=== PATIENT | female | born 1945 | race Caucasian/White ===

== ENCOUNTER 2017-09-25 07:30 | Inpatient (IN) | payer OTHER ==
[~2017-09-25] VITALS: Ht 160 cm; Wt 68.2 kg
[2018-08-09 14:59] VITALS: Ht 160 cm; Wt 68.2 kg
[2018-08-15] VITALS (21 sets, daily range): BP systolic 108–140; BP diastolic 46–84; PULSE 54–75; RESP 16–20
[2018-08-15] MEDS ORDERED: LACTATED RINGER'S 1,000 ML IV* SCH (06:00)
[2018-08-15] MEDS ORDERED: ACETAMINOPHEN 500 MG TAB PO ONE (06:00)
[2018-08-15] MEDS ORDERED: TRANEXAMIC ACID 1,000 MG in NS 100 ML PRE-OP X1 IVPB ONE (06:00)
[2018-08-15] MEDS ORDERED: CEFAZOLIN 2 GM/50 ML (PMX) 50 ML IVPB ONE (06:00)
[2018-08-15] MEDS ORDERED: TRANEXAMIC ACID 1,000 MG in NS 100 ML INTRA-OP X1 IVPB ONE (06:00)
[2018-08-15] MEDS ORDERED: DEXAMETHASONE 4 MG/ML 1 ML INJ IV ONE (06:00)
[2018-08-15] MEDS ORDERED: GLYCOPYRROLATE 0.4 MG INJ ONE ×2 (07:00→14:59)
[2018-08-15] MEDS ORDERED: SULF500T5 PO (11:33)
[2018-08-15] MEDS ORDERED: LATA2.5D2 BOTH EYES (11:34)
[2018-08-15] MEDS ORDERED: ASPI81TA52 PO (11:34)
--- NOTE | 2018-08-15 11:58 | HPN ---
Date/Time of Note Date/Time of Note DATE: 08/15/18 TIME: 11:58 Interval H&P Admission Note Pt. seen H&P reviewed: No system changes LORA HERNANDEZ Aug 15, 2018 11:58
[2018-08-15] MEDS ORDERED: ACETAMINOPHEN 1000MG/100ML IV 100 ML IVPB SCH (12:00)
[2018-08-15] MEDS ORDERED: POLYMYXIN B 500000 UNIT INJ ONE (12:18)
--- NOTE | 2018-08-15 12:23 | PREAC ---
Date/Time of Note Date/Time of Note DATE: 08/15/18 TIME: 12:21 Anesthesia Eval and Record Evaluation Time Pre-Procedure Interview DATE: 08/15/18 TIME: 12:21 Age 73 Sex female NPO: 8 hrs Preoperative diagnosis left knee osteoarthritis Planned procedure left total knee replacement Past Medical History Past Medical History: Includes Cardio: HTN, Dyslipidemia, Other (aortic valve replacemnt) Musculoskeletal: Osteoarthritis Renal: CKD, Other (hy of dialysis 20 years ago, resolved) GI: Other (hx of colon resection with colostomy) Surgery & Anesthesia Issues No known issue Meds Anticoagulation: No Beta Isaías within 24 hr: No Reason Beta Isaías not given: Pt. not on B-Isaías Reported Medications Latanoprost (Latanoprost) 2.5 Ml Drops, 1 DROP BOTH EYES QHS, #1 BOTTLE 08/15/18 Aspirin (Low Dose Aspirin) 81 Mg Tablet.dr, 81 MG PO DAILY, #30 TAB 08/15/18 Sulfasalazine* (Sulfazine*) 500 Mg Tablet, 1000 MG PO TID, TAB 08/15/18 Current Medications Lactated Ringer's 1,000 ml @ 125 mls/hr Q8H IV* Last administered on 08/15/18at 12:09; Admin Dose 125 MLS/HR; Start 08/15/18 at 06:00; Stop 08/15/18 at 13:59 Meds reviewed: Yes Allergies Coded Allergies: No Known Allergy (Unverified , 08/15/18) Allergies Reviewed: Yes Labs/Studies Labs Reviewed: Reviewed by anesthesiologist test: N/A Studies: ECG, CXR Pre-procedure Exam Airway: Adequate mouth opening, Adequate thyromental dist Mallampati: Mallampati I Teeth: Normal Lung: Normal Heart: Normal ASA Physical Status ASA physical status: 3 Emergency: None Planned Anesthetic General/MAC: ETT Neuraxial: Spinal Planned Pain Management Parenteral pain med Pre-operative Attestations Prior to commencing anesthesia and surgery, the patient was re-evaluated, there was verification of: *The patient's identity *The results of appropriate recent lab work and preoperative vital signs *The above evaluation not changing prior to induction *Anesthetic plan, risk benefits, alternative and complications discussed with patient/family; questions answered; patient/family understands, accepts and wishes to proceed. JAVED WANG Aug 15, 2018 12:23
[2018-08-15] MEDS ORDERED: MIDAZOLAM 1 MG/ML 2 ML INJ ONE (12:56)
[2018-08-15] MEDS ORDERED: PROPOFOL 20 ML ONE (12:57)
[2018-08-15] MEDS ORDERED: EPHEDrine SULFATE 50 MG/5 ML SYG ONE (12:57)
[2018-08-15] MEDS ORDERED: ROCURONIUM 50 MG INJ ONE (12:57)
[2018-08-15] MEDS ORDERED: CEFAZOLIN 1 GM INJ ONE (13:50)
[2018-08-15] MEDS ORDERED: ONDANSETRON 4 MG INJ ONE (13:51)
[2018-08-15] MEDS ORDERED: DEXAMETHASONE 4 MG/ML 5 ML INJ ONE (13:51)
[2018-08-15] MEDS ORDERED: BACITRACIN 50000 UNITS INJ IRR ONE (14:08)
[2018-08-15] MEDS ORDERED: LABETALOL HCL 20MG INJ ONE (14:20)
[2018-08-15] MEDS ORDERED: BACITRACIN 50000 UNITS INJ ONE (14:54)
--- NOTE | 2018-08-15 14:55 | SIPON ---
Date/Time of Note Date/Time of Note DATE: 08/15/18 TIME: 14:54 Operative Report Preoperative Diagnosis Left knee osteoarthritis Postoperative Diagnosis Same Operation/Procedure Performed Left total knee replacement Surgeon see signature line sugar laboratory assistant JOAN Pratt Anesthesia: spinal Estimated blood loss: 150 - 200 ml's Transfusion Required none Specimen Bone Grafts/Implants Attune knee, 5 femur, 4 tibia, 5 polyethylene and 35 patella Complications none LORA HERNANDEZ Aug 15, 2018 14:55
--- NOTE | 2018-08-15 14:58 | OPR ---
Date/Time of Note Date/Time of Note DATE: 08/15/18 TIME: 14:55 Operative Report Procedure Date: Aug 15, 2018 Preoperative Diagnosis Left knee osteoarthritis Postoperative Diagnosis Same Operation/Procedure Performed Left total knee replacement Surgeon see signature line Exterior Door Installer JOAN Pratt Anesthesia Type: spinal Estimated Blood Loss: 150 - 200 ml's Transfusion none Specimen Bone Grafts/Implants Attune knee, 5 femur, 4 tibia, 5 polyethylene, 35 patella Complications none Pt Condition Post Procedure: stable Disposition: PACU Indications Patient is a 73-year-old female with advanced arthritis of her left Procedure Description The patient was placed supine on the operating room table. The left knee was prepped and draped in the usual manner. Effusion and deformity were noted. An anterior incision was made. A mid vastus approach was made in the patella displaced laterally without everting it. Using intramedullary alignment, the distal femoral cut was made in 5 degrees of valgus. The femur was measured to be a size 5 from the [employer] knee system. The 5 cutting block was placed and anterior posterior and chamfer cuts made. A notch was cut in the distal femur to accommodate the posterior stabilized femoral component. The PCL was sacrificed and remnants of the menisci were removed. The tibia was cut using external alignment and the patella cut using a freehand technique. Trials were inserted including a 5 femur, 4 tibia, 5 mm of polyethylene and 35 patella. This resulted in a stable knee from 0-130 degrees with good balance and tracking. X-rays confirm proper alignment of the implants. Once satisfactory alignment was confirmed, the left knee was thoroughly irrigated, trials were removed. Final implants were cemented in place including a 5 narrow femur, 4 tibia, 35 patella. A 5 mm of polyethylene were inserted. The knee was thoroughly irrigated and injected with pain cocktail. The knee was closed in layers using #1 strata fix for deep fascia, 2-0 Vicryl for subcutaneous tissue and 3-0 Monocryl for the skin. Patient was transferred to the recovery room in stable condition LORA HERNANDEZ Aug 15, 2018 14:58
[2018-08-15] MEDS ORDERED: NEOSTIGMINE 3 MG/3 ML SYRINGE ONE (14:59)
[2018-08-15] MEDS ORDERED: BISACODYL 10 MG SUPP PR PRN (15:00)
[2018-08-15] MEDS ORDERED: NALOXONE (0.4 MG/ML) INJ IV PRN (15:00)
[2018-08-15] MEDS ORDERED: NACL 0.9% 3 ML SYG IV SCH (15:00)
[2018-08-15] MEDS ORDERED: MAGNESIUM HYDROXIDE 30ML CUP PO PRN (15:00)
[2018-08-15] MEDS ORDERED: KETOROLAC 15 MG INJ IV PRN (15:00)
[2018-08-15] MEDS ORDERED: oxyCODONE 5 MG TAB PO PRN ×2 (15:00)
--- NOTE | 2018-08-15 15:26 | PAC ---
Date/Time of Note Date/Time of Note DATE: 08/15/18 TIME: 15:25 Post-Anesthesia Notes Post-Anesthesia Note Last documented vital signs Vital Signs Date Temp Pulse Resp B/P (MAP) Pulse Ox O2 O2 Flow FiO2 Time Delivery Rate 08/15/18 99.5 67 136/78 95 15:23 08/15/18 75 16 130/60 100 Room Air 12:25 (83) Activity: WNL Respiratory function: WNL Cardiovascular function: WNL Mental status: Baseline Pain reasonably controlled: Yes Hydration appropriate: Yes Nausea/Vomiting absent: Yes JAVED WANG Aug 15, 2018 15:26
[2018-08-15] MEDS ORDERED: HYDROmorphONE 1 MG/5 ML IV SYRINGE IV PRN ×3 (15:30)
[2018-08-15] MEDS ORDERED: DIPHENHYDRAMINE 50 MG INJ IV PRN (15:30)
[2018-08-15] MEDS ORDERED: ONDANSETRON 4 MG INJ IV PRN (15:30)
[2018-08-15] MEDS ORDERED: hydrALAzine 20 MG INJ IV PRN (15:30)
[2018-08-15] MEDS ORDERED: KETOROLAC 30 MG INJ IV PRN (15:30)
[2018-08-15] MEDS ORDERED: EPHEDrine SULFATE 50 MG/5 ML SYG IV PRN (15:30)
[2018-08-15] MEDS ORDERED: METOCLOPRAMIDE 10 MG INJ IV PRN (15:30)
[2018-08-15] MEDS ORDERED: MIDAZOLAM 1 MG/ML 2 ML INJ IV PRN (15:30)
[2018-08-15] MEDS ORDERED: MEPERIDINE 25 MG INJ IV PRN (15:30)
[2018-08-15] MEDS ORDERED: ALBUTEROL 0.083% (NEB) 2.5 MG/3 ML AMP HHN PRN (15:30)
[2018-08-15] MEDS ORDERED: LABETALOL HCL 20MG INJ IV PRN (15:30)
[2018-08-15] MEDS ORDERED: OXYCODONE/ACETAMINOPHEN (5/325) TAB PO PRN ×2 (15:30)
[2018-08-15] MEDS ORDERED: FENTAnyl 50 MCG/ML VIAL IV PRN ×3 (15:30)
[2018-08-15] MEDS ORDERED: HYDROmorphONE 1 MG/5 ML IV SYRINGE IV ONE (15:39)
--- NOTE | 2018-08-15 16:30 | NUR ---
PT EVXENIA Therapy day number 1 Evaluation Start Time 15:30 Evaluation Total Time 0 min Subjective Current complaint of pain Pain Scale NUMERIC Pain Intensity 7 (0-10) Patient Stated Goal for Pain Relief 0 (0-10) Pain Level Comment L knee pain Pre Treatment Vital Signs Stable Yes - per PACU monitors Exercise Assessment Label Left Lower Extremity Exercise Type Active ROM Additional Exercise Comments per TKA protocol Supine to Sit Moderate Assist Transfer Sit to Stand Ability Contact Guard Assist Bed Mobility Sit to Supine Contact Guard Assist Bed Transfer Ability Minimum Assist Chair Transfer Ability Minimum Assist Sitting Tolerance 15 min Patient uses wheelchair Not Applicable Gait Assist Levels Contact Guard Assist Assistive Devices Front Wheel Walker Ambulation Distance 15 feet Additional Gait Comments forward and backwards 5' x 3; reciprocal, mild antalgic, increased B UE sup Weight Bearing Assessment Label Left Lower Extremity Weight Bearing Status Weight Bearing as Malik Additional Stairs Assist Comments TBA Static Sitting Balance Good Dynamic Sitting Balance Good Standing Static Balance Fair plus Dynamic Standing Balance Fair Additional Balance Assessments Comments FWW Safety Judgement Fair Activity Tolerance Fair Equipment Present A pump Polar Care Additional Equipment Present O2 via NC Post Treatment Pain Intensity 0 0-10 Quality Indicators Dizziness Variance Documentation SEE PT EVAL PT Technical Record Comment PT LINDY Pt is a 73 yo F with PMH of aortic valve replacement, colostomy bag, and advanced knee arthritis of the L knee who is now S/P L TKA on 08/15/18. Pt received in PACU. PLOF: Pt lives alone in a SSH with 2 steps to enter. Ambulatory with FWW for household distances and SPC for community ambulation. Pt also owns a shower chair. Pt reports her friend will be assisting her once d/c'd home. CLOF. RN cleared pt for PT evaluation. Pt received semi-supine in bed, vitals assessed and stable, agreeable to PT evaluation. Pt educated in and issued post-op TKA exercise protocol and performed exercises with good return, noted adequate quad strength and knee ROM. Bed mobility, transfer, and gait assessment as above, pt amb 15' forward and backwards distance limited due to dizziness. Pt returned to bed, all needs in reach, no signs of distress, RN aware of pt's status. A: Pt demonstrates mobility deficits due to mild L knee pain and dizziness due PT evaluation, though able to perform all mobility tasks with Shelia-CGA. Pt will benefit from additional skilled PT during LOS for further mobility training and to maximize independence prior to d/c. D/c recommendation per MD recommendation. If d/c home pt may benefit from 3:1 commode, already owns FWW, SPC, and shower chair. P: Continue c PT POC (BID x 6) PT CLEARED TO BEDSIDE COMMODE WITH FUEL CELL TECHNICIAN USING FWW
--- NOTE | 2018-08-15 16:39 | NUR ---
vss pain 11/22 scd applied polar care applied to patient 16:15 pt worked with PTMerlin; used walker @ bedside pt tolerated po liquid and solids report given to JOEY Lama friend, send up to room awaiting transport Addendum: 08/15/18 at 1713 by ADI GATIAN RN Lisette took patient upstairs on bed with scd and polar care machine friend already upstairs on 4th floor
[2018-08-15] MEDS: LACTATED RINGER'S 1,000 ML IV SCH (17:28)
--- NOTE | 2018-08-15 18:21 | NUR ---
END OF SHIFT NOTE: Patient arrived from PACU and was oriented to room and call light. Patient stated pain was manageable at this time. Patient tolerating diet currently with no nausea or vomiting. Patient due to void. Patient had a colostomy due to ulcerative colitis. Patient had no other events noted. Vital signs stable.
[2018-08-15] MEDS: GABAPENTIN 100 MG CAP PO SCH (21:05)
[2018-08-15] MEDS: CEFAZOLIN 2 GM/50 ML (PMX) 50 ML IVPB SCH ×2 (22:33→23:00)
[2018-08-16 00:46] VITALS: BP 96/46; PULSE 71; RESP 18
[2018-08-16 02:19] VITALS: BP 123/58; PULSE 66
--- NOTE | 2018-08-16 06:53 | NUR ---
EOSS: Patient AA Oriented x 4, not in any distress, stable hemodynamically, afebrile. Patient able to make her needs known, requires assistance in ADL, able to get up with assistance,used bathroom during the night. Currently patient resting comfortably in the bed with eyes open in no distress, denies SOB, denies nausea or vomiting. All scheduled medications administered per orders. All patient's needs attended. Continuous monitoring provided. Will report to the next shift.
[2018-08-16 07:40] VITALS: BP 107/51; RESP 18
[2018-08-16] MEDS: CEFAZOLIN 2 GM/50 ML (PMX) 50 ML IVPB SCH (07:56)
[2018-08-16] MEDS: LACTATED RINGER'S 1,000 ML IV SCH (07:57)
[2018-08-16] MEDS ORDERED: DOCUSATE SODIUM 100 MG CAP PO SCH (09:00)
[2018-08-16] MEDS ORDERED: CELECOXIB 100 MG CAP PO SCH (09:00)
[2018-08-16] MEDS ORDERED: ASPIRIN (EC) 81 MG TAB PO SCH (09:00)
--- NOTE | 2018-08-16 09:30 | NUR ---
PT NOTE [facility] Patient: Emily Witt : 1945 Age/Sex: 73/F Unit#: [id number] Room/Bed: 414/A User: Merlin Mosqueda PT Date: 08/16/18 08:50 Type: PT Technical Record Therapy day number 2 Subjective Current complaint of pain Pain Scale NUMERIC Pain Intensity 2 (0-10) Patient Stated Goal for Pain Relief 0 (0-10) Pain Level Comment L knee pain Pre Treatment Vital Signs Stable Yes Exercise Assessment Label Left Lower Extremity Exercise Type Active ROM Additional Exercise Comments per TKA protocol Exercise Start Time 09:15 Exercise End Time 09:30 Total Exercise Time 15 min (8-127) Transfer Training Start Time 08:50 Supine to Sit Stand by Assist Transfer Sit to Stand Ability Stand by Assist Bed Mobility Sit to Supine Stand by Assist Bed Transfer Ability Stand by Assist Chair Transfer Ability Stand by Assist Sitting Tolerance 10 min Transfer Training End Time 09:00 Total Transfer Training Time 10 min (8-127) Gait Training Start Time 09:00 Gait Assist Levels Contact Guard Assist Assistive Devices Front Wheel Walker Ambulation Distance 100 feet Additional Gait Comments 100' x 2 with FWW with standing rest break; reciprocal, decreased R knee fl Gait Training End Time 09:15 Total Gait Training Treatment Time 15 min (8-127) Weight Bearing Assessment Label Left Lower Extremity Weight Bearing Status Weight Bearing as Malik Additional Stairs Assist Comments TBA Static Sitting Balance Good Dynamic Sitting Balance Good Standing Static Balance Good Dynamic Standing Balance Fair plus Additional Balance Assessments Comments FWW Safety Judgement Good Activity Tolerance Good Equipment Present A pump Post Treatment Pain Intensity 0 0-10 Variance Documentation SEE PT NOTE Total Treament Time 40 min (8-127) Total Minutes 40 Total Units 3 PT Technical Record Comment PT NOTE S: Pt reports she is feeling better today, tired due to lack of sleep last night O: JOEY Steven cleared pt for PT session. Pt received semi-supine in bed, agreeable to PT session. Pt participated in interventions above including post-op TKA exercises per chart, and amb 100' x 2, noting with gait training pt with decreased R knee flexio during R swing and mild forward flexed posture. Pt returned to bed, all needs in reach, no signs of distress, bed alarm activated, RN notified of pt's status. A: Pt demonstrates increased independence with all mobility tasks. Ambulation distance was limited due to fatigue and mild L knee pain (100' x 2)' P: Continue c PT POC, stair training in pm. PT CLEARED TO AMB TO RESTROOM WITH CHAR PULLER USING FWW
[2018-08-16] MEDS: GABAPENTIN 100 MG CAP PO SCH ×2 (09:31→14:30)
[2018-08-16 14:03] VITALS: BP 114/58; PULSE 68; RESP 18
[2018-08-16] MEDS ORDERED: ONDANSETRON 4 MG INJ IV PRN (15:00)
--- NOTE | 2018-08-16 16:23 | NUR ---
PT NOTE [facility] Patient: Emily Witt : 1945 Age/Sex: 73/F Unit#: [id number] Room/Bed: 414/A User: Merlin Mosqueda PT Date: 08/16/18 15:20 Type: PT Technical Record Therapy day number 2 Subjective Current complaint of pain Pain Scale NUMERIC Pain Intensity 0 (0-10) Patient Stated Goal for Pain Relief 0 (0-10) Pain Level Comment L knee pain Pre Treatment Vital Signs Stable Yes Transfer Training Start Time 15:20 Supine to Sit Modified Independent Transfer Sit to Stand Ability Supervised Bed Mobility Sit to Supine Modified Independent Bed Transfer Ability Supervised Chair Transfer Ability Supervised Sitting Tolerance 10 min Transfer Training End Time 15:35 Total Transfer Training Time 15 min (8-127) Gait Training Start Time 15:35 Gait Assist Levels Supervised Assistive Devices Front Wheel Walker Ambulation Distance 200 feet Additional Gait Comments 200' x 2 with FWW, steady, reciprocal, Gait Training End Time 15:45 Total Gait Training Treatment Time 10 min (8-127) Weight Bearing Assessment Label Left Lower Extremity Weight Bearing Status Weight Bearing as Malik Stair Climbing Ability Stand by Assist Number of Stairs 12 Stairs Additional Stairs Assist Comments 4 steps x 3 with unilateral rail, step-to gait pattern, VC initially Static Sitting Balance Good Dynamic Sitting Balance Good Standing Static Balance Good Dynamic Standing Balance Fair plus Additional Balance Assessments Comments FWW Safety Judgement Good Activity Tolerance Good Equipment Present A pump Post Treatment Pain Intensity 0 0-10 Variance Documentation SEE PT NOTE Total Treament Time 25 min (8-127) Total Minutes 25 Total Units 2 PT Technical Record Comment PT NOTE S: Pt had nothing new to report O: JOEY Steven cleared pt for PT session. Pt received semi-supine in bed, agreeable to PT session. Pt requested to use restroom, able to toilet with Marian. Pt participated in interventions above including ambulation of 200' x 2 with FWW and, curb-sized step training with FWW, and negotiation of 12 steps using unilateral railing. Pt returned to bed, all needs in reach, no signs of distress, RN notified of pt's status. A: Pt continues to demonstrate increasing independence c all mobility tasks. Able to ambulate 200' with FWW and negotiate 12 steps safely using unilateral rail. P: Continue c PT POC
--- NOTE | 2018-08-16 16:38 | NUR ---
DISCHARGE NOTE IV D/C. Vitals stable. Discharge instructions given to pt along with prescriptions. Pt discharged from unit via registered land surveyor and all her belongings. Pt ride is waiting for her downstairs in the discharge area.
[2018-08-17] MEDS ORDERED: PANTOPRAZOLE (EC) 40 MG TAB PO SCH (06:00)
== END 2018-08-16 16:35 | disposition home or self-care (01) | DRG 470 ==
LOC: REC 08-15 10:38 → MS1 08-15 17:00
PROVIDERS: ADMIT Orthopaedic Surgery; ATTEND Orthopaedic Surgery
PROC: 0SRD0J9 Replacement of Left Knee Joint with Synthetic Substitute, Cemented, Open Approach (ICD-10-PCS; principal; 2018-08-15 12:30)
DX: M17.12 Unilateral primary osteoarthritis, left knee (principal); I10 Essential (primary) hypertension; E78.5 Hyperlipidemia, unspecified; Z95.2 Presence of prosthetic heart valve; Z93.3 Colostomy status
CPT/HCPCS: 73560; 80048; 85025; 86850; 86900; 86901; 87081; 88304; 88311; 97110; 97116; 97161; 97530; C1713; C1776; J0131; J0171; J0690; J0735; J1100; J1170; J1885; J2250; J2405; J2710; J2795; J7120

== ENCOUNTER 2017-10-08 07:01 | Day surgery (SDC) | END 2017-10-08 15:10 | disposition home or self-care (01) ==